=== PATIENT | female | born 1950 | race Caucasian/White ===

== ENCOUNTER → 2017-07-31 | Outpatient (CLI) | payer MEDICARE ==
[~2017-07-31] MED LIST: AMBI10TA PO; AMIT25TA20 PO; LISI-363 PO; PRO AIR INH
--- NOTE | 2017-08-02 11:03 | RSPPFT ---
DATE OF PROCEDURE: 07/31/17 COMMENTS: Spiroemtry shows FVC of 1.3 at 57% of predicted, FEV1 of 05 at 29%, FEV1/FVC ratio is decreased. Flow is decreased at FEF 25, FEF 50, FEF 75 and FEF 25-75. There is a good response after bronchodilator treatment. Lung volumes show residual volume is increased. TLC is normal. Diffusion capacity is decreased. Flow volume loop indicates an obstructive pattern. IMPRESSION: 1. Severe obstructive lung disease. 2. Good response after bronchodilator treatment. 3. Lung volumes show hyperinflation. 4. Mild decrease in diffusion capacity.
== END ==
LOC: PHRSP 07:32
PROVIDERS: ATTEND Specialist
DX: J44.9 Chronic obstructive pulmonary disease, unspecified (principal)
CPT/HCPCS: 94060; 94726; 94729